=== PATIENT | male | born 1960 | race Two or more races ===

== ENCOUNTER 2022-06-04 07:19 | Outpatient (CLI) | payer OTHER | END 2022-06-04 07:23 | disposition home or self-care (01) | LOC: LAB 07:19 | PROVIDERS: ATTEND Internal Medicine | DX: U07.1 COVID-19 (principal); B34.1 Enterovirus infection, unspecified ==

== ENCOUNTER 2022-06-04 07:45 | Outpatient (CLI) | payer OTHER | END 2022-06-04 07:48 | disposition home or self-care (01) | LOC: NUCLEAR 07:45 | PROVIDERS: ATTEND Internal Medicine Cardiovascular Disease | DX: I65.22 Occlusion and stenosis of left carotid artery (principal); R07.9 Chest pain, unspecified; E78.2 Mixed hyperlipidemia; I20.8 Other forms of angina pectoris | CPT/HCPCS: 78452; 93017; A9500 ==

== ENCOUNTER 2022-06-10 09:57 | Outpatient (CLI) | payer OTHER | END 2022-06-10 10:03 | disposition home or self-care (01) | LOC: NUCLEAR 09:57 | PROVIDERS: ATTEND Internal Medicine | DX: I65.22 Occlusion and stenosis of left carotid artery (principal); R07.9 Chest pain, unspecified; E78.2 Mixed hyperlipidemia; I20.8 Other forms of angina pectoris ==

== ENCOUNTER 2022-06-11 08:45 | Outpatient (CLI) | payer OTHER | END 2022-06-11 08:47 | disposition home or self-care (01) | LOC: NUCLEAR 08:45 | PROVIDERS: ATTEND Internal Medicine | DX: I65.22 Occlusion and stenosis of left carotid artery (principal); R07.9 Chest pain, unspecified; E78.2 Mixed hyperlipidemia; I20.8 Other forms of angina pectoris ==